=== PATIENT | female | born 1985 | race Caucasian/White ===

== ENCOUNTER 2022-07-16 03:57 | Emergency (ER) | payer BC, SELFPAY ==
[2022-07-16 04:06] VITALS: BP 176/91; PULSE 115; RESP 18; TEMP 36.7; O2SAT 100
--- NOTE | 2022-07-16 04:24 | ED.GENADULT ---
HPI - General Adult General Chief complaint: Ear Stated complaint: Bilateral ear pain, mainly on right side Time Seen by Provider: 07/16/22 04:13 History of Present Illness HPI narrative: Year old female presenting ED with chief complaint of ear pain and sore throat. Patient says that on she had a sharp pain in her right ear as well as a sore throat, fevers of 100.4, cough and congestion. She has taken DayQuil and Tylenol with no relief. She is now experiencing pain in both ears. She is nauseous but has not had vomiting. She has had 1 episode of diarrhea. She is not vaccinated against flu but is vaccinated against COVID. She has no sick contacts. Related Data Allergies Allergy/AdvReac Type Severity Reaction Status Date / Time aspirin AdvReac Abdominal Verified 07/16/22 04:00 Pain ibuprofen AdvReac Abdominal Verified 07/16/22 04:00 Pain Review of Systems Review of Systems: CONSTITUTIONAL: Denies night sweats. EYES: No eye pain ENT: Denies rhinorrhea CARDIOVASCULAR: Denies palpitations RESPIRATORY: Denies hemoptysis GASTROINTESTINAL: Denies hematemesis GENITOURINARY: Denies hematuria. SKIN: Denies rash MUSCULOSKELETAL: Denies myalgia. NEUROLOGIC: Denies weakness. PSYCHIATRIC: Denies delusions [facility] Social History Social History (Updated 07/16/22 @ 05:24 by Gerardo Lopez MD) Social History: Patient admits alcohol use, denies tobacco or drug use Exam Narrative: APPEARANCE: No apparent distress. Head: atraumatic. oropharynx is erythematous without exudates or evidence of abscess. Tympanic membranes are partially obscured by cerumen, but the portions I can see have clear fluid behind them. EYES: EOMI, NOSE: Atraumatic NECK: Trachea midline RESPIRATORY: No increased rate of breathing , clear to auscultation CARDIOVASCULAR: RRR, ABDOMINAL: Non-distended MUSCULOSKELETAl: No obvious deformities NEURO: Alert. Moving 4/4 extremities SKIN:: Warm, dry. Normal color PSYCHIATRIC: Normal affect Course Vital Signs Vital signs: Vital Signs Temperature 98.1 F 07/16/22 04:06 Pulse Rate 115 H 07/16/22 04:06 Respiratory Rate 18 07/16/22 04:06 Blood Pressure 176/91 H 07/16/22 04:06 Pulse Oximetry 100 07/16/22 04:06 Oxygen Delivery Room Air 07/16/22 04:06 Temperature 98.1 F 07/16/22 04:06 Pulse Rate 115 H 07/16/22 04:06 Respiratory Rate 18 07/16/22 04:06 Blood Pressure 176/91 H 07/16/22 04:06 Pulse Oximetry 100 07/16/22 04:06 Oxygen Delivery Room Air 07/16/22 04:06 Medical Decision Making MDM Narrative Medical decision making narrative: this is a 37-year-old female presenting with ear pain and throat pain. Physical exam showed erythematous posterior oropharynx. Her tympanic membranes have clear fluid behind them likely due to her congestion and URI symptoms. Patient will be given pain medication and decongestants. She will be swabbed for COVID flu and strep throat. Swabs were negative. Patient will be discharged with symptomatic treatment. She is requesting ENT referral which will be provided. Vital Signs Vital Signs: Vital Signs Temperature 98.1 F 07/16/22 04:06 Pulse Rate 115 H 07/16/22 04:06 Respiratory Rate 18 07/16/22 04:06 Blood Pressure 176/91 H 07/16/22 04:06 Pulse Oximetry 100 07/16/22 04:06 Oxygen Delivery Room Air 07/16/22 04:06 Temperature 98.1 F 07/16/22 04:06 Pulse Rate 115 H 07/16/22 04:06 Respiratory Rate 18 07/16/22 04:06 Blood Pressure 176/91 H 07/16/22 04:06 Pulse Oximetry 100 07/16/22 04:06 Oxygen Delivery Room Air 07/16/22 04:06 Discharge Plan Discharge Clinical Impression: Pharyngitis, Acute ear pain Patient Disposition: Home, Self-Care Condition: Stable Instructions: Antibiotic Form, Earache (ED) Additional Instructions: Please take Tylenol for pain control. Please take decongestants. Please follow-up with ENT and her primary care physician. You ca
--- NOTE | 2022-07-16 04:37 | PC.NURSE ---
Patient states she is feeling better from the medications she took [employer], refusing norco at this time.
[2022-07-16] MEDS: guaiFENesin/DEXTROMETHORPHAN 10 ML UDC PO (04:42)
[2022-07-16 05:06] LABS: Strep Group A RT-PCR NOT DETECTED (Negative)
[2022-07-16 05:15] LABS: Influenza A QL RT-PCR Negative (Negative); Influenza B QL RT-PCR Negative (Negative); SARS-CoV-2 RNA PCR Negative
[2022-07-16 05:26] VITALS: BP 132/90; PULSE 83; RESP 18; O2SAT 99
[2022-07-16] MEDS: HYDROcodone/acetaminophen (*CRX) 5-325 MG TABLET 1 TAB PO (05:31)
== END 2022-07-16 05:30 | disposition home or self-care (01) ==
PROVIDERS: Emergency Provider Emergency Medicine
DX: J02.9 Acute pharyngitis, unspecified (principal); H92.03 Otalgia, bilateral; Z20.822 Contact with and (suspected) exposure to COVID-19
CPT/HCPCS: 87636; 87651; 96372; 99283; A9270; J1100